=== PATIENT | male | born 1995 | race Two or more races ===

== ENCOUNTER 2024-04-08 20:16 | Emergency (ER) | payer SELFPAY ==
[~2024-04-08] VITALS: Ht 165.1 cm; Wt 77.3 kg
[2024-04-08 20:20] VITALS: TEMP 99.1
[2024-04-08] MEDS: LIDOCAINE 1% 10 ML VIAL PERC ONE (21:18)
[2024-04-08] MEDS: PERTUSS(ACELL),DIPH,TET/PF 0.5 ML SYRINGE [ADULT] IM. ONE (21:20)
[2024-04-08] MEDS: BACITRACIN 0.9 GM PACKET OINTMENT TP ONE (21:54)
[2024-04-08] MEDS ORDERED: CEPH-558 PO (21:57)
[2024-04-08] MEDS ORDERED: IBUP-1492 PO (21:58)
[2024-04-08 22:06] VITALS: BP 138/86; PULSE 89; RESP 20; O2SAT 98
== END 2024-04-08 22:21 | disposition home or self-care (01) ==
LOC: EMS 20:16
DX: S61.211A Laceration without foreign body of left index finger without damage to nail, initial encounter (principal); W26.8XXA Contact with other sharp object(s), not elsewhere classified, initial encounter; Y93.89 Activity, other specified; Y92.89 Other specified places as the place of occurrence of the external cause; Y99.8 Other external cause status
CPT/HCPCS: 99283; 90715; 90471; 12001; J3490